=== PATIENT | male | born 1955 | race Caucasian/White ===

== ENCOUNTER 2022-08-09 09:07 | Outpatient (CLI) | payer OTHER, SELFPAY ==
--- NOTE | 2022-08-12 10:14 | WPDHOLTEREM ---
Holter/Event Monitor Holter/Event Monitor Date of procedure: 08/09/22 Holter/Event Procedure: 24 Hr Holter Monitor Diagnosis: Cardiac arrhythmia Indications: Cardiac arrhythmia Image/Tracing Quality: Good Finding: A total of 23 hours and 49 minutes were recorded be analyzed Underlying normal sinus rhythm with heart rate variability between 55 and 111 beats per minute with an average heart rate 72 beats per minute. Low frequency ventricular ectopy totaling 93 beats. These were all isolated PVCs and 3 which were interpolated PVCs. No sustained or nonsustained runs of ventricular arrhythmia. Moderate frequency supraventricular ectopy totaling 2332 beats which is 2.4% ectopic burden. This consisted 1298 isolated premature atrial contractions, 994 beats in atrial bigeminy, 3 beats in atrial trigeminy. There is also 9 atrial couplets. No sustained or nonsustained runs of supraventricular arrhythmia. No atrial fibrillation. No symptoms reported. No complex arrhythmia, heart block or pauses. Longest RR interval was 1.4 seconds Conclusion: 1. Underlying sinus rhythm with average heart rate 72 beats per minute 2. Low frequency ventricular ectopy 3. Moderate supraventricular ectopy as detailed above including isolated PACs, atrial couplets, atrial bigeminy and atrial trigeminy 4. No complex arrhythmia including no sustained or nonsustained runs of ventricular or supraventricular tachycardia, complex heart block or significant pauses. 5. No symptoms recorded
== END 2022-08-09 09:08 | disposition home or self-care (01) ==
LOC: ANHCARD 09:11
PROVIDERS: PCP Internal Medicine; Visit Provider Internal Medicine
DX: I49.9 Cardiac arrhythmia, unspecified (principal)
CPT/HCPCS: 93225; 93226